=== PATIENT | male | born 1970 | race Caucasian/White ===

== ENCOUNTER 2018-04-01 16:38 | Emergency (ER) | payer OTHER ==
[~2018-04-01] VITALS: Ht 175.3 cm; Wt 125.0 kg
[~2018-04-01 16:38] MED LIST: CIPRO500 MG PO; PERCOCET 5-3251 TAB PO; PRINIVIL20 MG PO
[2018-04-01 16:41] VITALS: Ht 175.3 cm; Wt 125.0 kg
[2018-04-01] MEDS ORDERED: BAYER CHEWABLE81 MG PO (16:42)
[2018-04-01 17:09] LABS: BASOPHILS 0.2 % (0-2); HEMATOCRIT 39.5 % (42.0-54.0); HEMOGLOBIN 13.6 g/dL (13.5-17.5); IMMATURE GRANULOCYTES 0.6 % (0-5); LYMPHOCYTES 19.9 % (15-50); MCH 30.6 pg (26.0-34.0); MCHC 34.4 g/dL (31.0-37.0); MCV 88.8 fL (80.0-100.0); MEAN PLATELET VOLUME 9.9 fL (7.4-10.4); NEUTROPHILS 69.3 % (40-80); PLATELET COUNT 172 10x3/uL (130-400); RBC 4.45 10x6/uL (4.20-6.10); RDW 13.3 % (11.5-14.5); WBC 9.1 10x3/uL (4.8-10.8)
[2018-04-01 17:27] LABS: APTT 23.7 SECONDS (22.8-39.4); INR 0.99 (0.85-1.17); PROTIME 12.7 SECONDS (11.6-15.0)
[2018-04-01 17:34] LABS: ALBUMIN 3.9 g/dL (3.4-5.0); ALKALINE PHOSPHATASE 58 U/L (46-116); ALT (SGPT) 36 U/L (10-68); BILIRUBIN - TOTAL 0.23 mg/dL (0.2-1.3); CALC OSMOLALITY 282 mosm/kg (275-300); CALCIUM 8.9 mg/dL (8.5-10.1); CHLORIDE - SERUM 104 mmol/L (98-107); CREATININE - SERUM 0.8 mg/dL (0.6-1.3); GLUCOSE 115 mg/dL (74-106); PROTEIN - SERUM 7.4 g/dL (6.4-8.2); SODIUM 141 mmol/L (136-145); UREA NITROGEN 15 mg/dL (7-18); eGFR NON AFRICAN AMERICAN > 90 mL/min (90-120)
[2018-04-01 17:50] LABS: CKMB 1.1 U/L (0.0-3.6); CREATINE KINASE 202 UL (21-232)
[2018-04-01 17:51] LABS: TROPONIN-I < 0.017 ng/mL (0.000-0.060)
[2018-04-01 19:33] VITALS: BP 139/85
== END 2018-04-01 19:34 | disposition home or self-care (01) ==
LOC: D.ER 16:38
PROVIDERS: Family Medicine
DX: I10 Essential (primary) hypertension (principal)